=== PATIENT | female | born 1955 | race African-American/Black ===

== ENCOUNTER 2017-01-05 11:37 | Emergency (ER) | payer MEDICARE, BC ==
[~2017-01-05] VITALS: Ht 170.2 cm; Wt 70.5 kg
[2017-01-05] MEDS ORDERED: IBUPROFEN 600MG TABLET PO ONE (12:45)
[2017-01-05 13:55] VITALS: BP 148/86
[2017-01-05] MEDS ORDERED: LOSARTAN POTASSIUM 50 MG TABLET PO SCH (14:45)
== END 2017-01-05 15:09 | disposition home or self-care (01) ==
LOC: ER 14:09
DX: J20.9 Acute bronchitis, unspecified (principal); I10 Essential (primary) hypertension; M47.9 Spondylosis, unspecified; G89.29 Other chronic pain; F11.10 Opioid abuse, uncomplicated
CPT/HCPCS: 87070; 87430; 87804; 99284